=== PATIENT | female | born 1955 | race Caucasian/White ===

== ENCOUNTER 2025-02-20 16:43 | Emergency (ER) | payer MEDICARE, OTHER, SELFPAY ==
[2025-02-20] VITALS (9 sets, daily range): BP systolic 125–135; BP diastolic 56–77; PULSE 64–84; BMI 22.8
[2025-02-20 17:28] LABS: Hematocrit 39.7 % (37.0-47.0); Hemoglobin 13.4 g/dL (12.0-16.0); Mean Corp Hgb Conc. 33.8 g/dL (33.0-37.0); Mean Corpuscular Volume 99.0 fL (81.0-99.0); Nucleated Red Blood Cells % 0 %; Platelet Count 217 10^3/uL (130-400); Red Cell Dist. Width 12.5 % (11.5-14.5)
[2025-02-20] MEDS: NSS 1000 IV (17:46)
[2025-02-20] MEDS: ATIVAN 0.5 MG PO (17:47)
[2025-02-20 17:53] LABS: Troponin I < 0.012 ng/ml
[2025-02-20 17:54] LABS: ALT (SGPT) 21 U/L (0-35); AST (SGOT) 26 U/L (14-36); Albumin 4.7 g/dl (3.5-5.0); Alkaline Phosphatase 85 U/L (38-126); Blood Urea Nitrogen 16 mg/dl (7-17); Calcium 9.0 mg/dl (8.4-10.2); Carbon Dioxide 22 mmol/L (22-30); Chloride 103 mmol/L (98-107); Estimated Creatinine Clearance 63 ml/min; Glucose 113 mg/dl (70-99); Potassium 3.5 mmol/L (3.5-5.1); Sodium 134 mmol/L (135-145); Total Protein 7.4 g/dl (6.3-8.2); eGFR > 60.00
--- NOTE | 2025-02-20 18:10 | ED.GENMED ---
History of Present Illness
General
Chief Complaint: Fainting/Passed Out
Time Seen by Provider: 02/20/25 17:32
History of Present Illness
History of Present Illness:
69-year-old female with history of anxiety presenting to the emergency department for near syncopal episode. Patient reports prior to arrival she was driving to the grocery store and felt like she was about to blackout so she pulled over. She
called the ambulance. Notes that she did not eat very much today, she had half a slice of bread with a piece of cheese on it and some jellybeans. Notes that this has happened to her in the past. Reports some prodromal dizziness. Denies any chest
pain or difficulty breathing. Denies abdominal pain or GI symptoms. Does report that she is feeling anxious. Denies additional acute medical complaints
Phy Exam
Physical Exam
Physical Exam:
General: Well-appearing, no clinical signs of dehydration, nontoxic and in no acute distress
HEENT: protecting airway
Neck: appears supple
CV: Normal heart rate, regular rhythm
Resp: No accessory muscle use, no increased work of breathing, lungs clear to auscultation bilaterally
Abd: no distension
Extremities: No deformities, no swelling
Neuro: alert, no focal neurologic deficit
: deferred
Rectal: deferred
Psych: Normal affect
Skin: Intact
Course
Orders/Labs/Results
Orders:
Orders
02/20/25 16:47
Electrocardiogram (*1) Urgent
Reason for Study: Chest Pain
Cardiac Monitoring- Treatment ONCE
EKG- Treatment ONCE
IV Insert/Care/Rem.- Treatment PRN
O2 Therapy [RESP] Urgent
Titrate/Wean O2 to maintain O2 sat greater than (%): 90
Special Instructions: Maintain sats >/=90%
Pulse Ox/spot Check [RESP] Urgent
Quantity: 1
Special Instructions: ON ROOM AIR
02/20/25 17:13
Complete Blood Count/With Diff Urgent
Comprehensive Metabolic Panel Urgent
Troponin I Urgent
02/20/25 17:42
0.9% Sodium Chloride 1000 ml [Nss] 1,000 ml IV BOLUS
Lorazepam [Ativan] 0.5 mg PO NOW STA
02/20/25 18:17
Orthostatic VS- Treatment ONCE
Abnormal Lab Results
02/20/25
17:13
RBC 4.01 L 10^6/uL
(4.20-5.40)
MCH 33.4 H pg
(27.0-31.0)
MPV 10.5 H fL
(7.4-10.4)
Absolute Lymphs (auto) 3.5 H 10^3/uL
(1.2-3.4)
Neutrophils % 41.4 L %
(42.2-75.2)
Sodium 134 L mmol/L
(135-145)
Glucose 113 H mg/dl
(70-99)
02/20/25 17:13
02/20/25 17:13
Vital Signs
Initial and Last Documented VS:
Initial Vital Signs
Temp Pulse Resp BP Pulse Ox
98.5 F 80 16 125/56 98
02/20/25 16:50 02/20/25 16:50 02/20/25 16:50 02/20/25 16:50 02/20/25 16:50
Last Documented Vital Signs
Temp Pulse Resp BP Pulse Ox
98.2 F 89 28 135/77 98
02/20/25 18:00 02/20/25 18:30 02/20/25 18:30 02/20/25 18:28 02/20/25 18:30
MDM/Problems Addressed
MDM/Problems Addressed:
69-year-old female with history of anxiety presenting for near syncope. Vital signs on arrival are normal.
On exam, patient resting comfortably, no acute distress or discomfort. Patient notes that she is feeling anxious, otherwise no acute symptoms. Reports that this has happened to her in the past and she was told it was vasovagal. Do suspect similar
etiology today, likely from lack of p.o. intake or fluid intake. No present concerning signs on exam, no focal neurologic deficits, unremarkable cardiac and pulmonary exam. EKG obtained, nonischemic, no arrhythmia. Plan for screening laboratory
analysis, orthostatics, and will treat with IV fluids and reassess. Patient is requesting Ativan for anxiety. Will administer
19:30 - Patient's labs are unremarkable. Orthostatics are negative. On reassessment patient reports that she is asymptomatic and would like to go home. Feel this is reasonable, however did educate on importance of appropriate nutrition and
hydration. Patient is here with her son. Son will take her home. Return precautions discussed and patient verbalized understanding
*Pulse Oximetry
SaO2: 99
Oxygen Mode of Delivery: Room air
Patient hypoxic: no
*EKG
Interpreted by ED Provider?: Yes
EKG Intrepretation Date: 02/20/25
EKG Intrepretation Time: 18:18
Interpretation: normal
Heart Rate: 76
Rate: normal
Rhythm: sinus
[place]: normal axis
Interval: normal interval
QRS Pattern: normal QRS
Ischemia: no ischemia
*Critical Care Note
Total Time (30-74mins, 75-104mins- exclusive of procedures): Not Applicable
ED Attending Note
-
Portions of this chart may have been created with voice recognition software.� Occasional wrong word or��sound alike� substitutions may have occurred due to the inherent limitations of voice recognition software.
Discharge Plan
Departure
Prescriptions:
No Action
valacyclovir [Valtrex] 500 mg Tablet
500 mg PO PRN PRN (Reason: cold sore)
escitalopram oxalate [Lexapro] 5 mg Tablet
5 mg PO DAILY
Referrals:
Scott Herring MD [Family Provider, Internal Medicine]
Interventions
Interventions:
*Risk Screen - Suicide Last Done: 02/20/25 16:50
*General Assessment Last Done: 02/20/25 16:50
*Neglect/Abuse Screening Last Done: 02/20/25 16:50
*ED- Fall Risk Assessment Last Done: 02/20/25 16:50
ED- Cardiac Assessment Last Done: 02/20/25 16:50
ED- Neurological Assessment Last Done: 02/20/25 16:50
Discharge Date and Time
Print Language: [id number]
== END 2025-02-20 21:00 | disposition home or self-care (01) ==
LOC: EMR 16:43
PROVIDERS: EMERGENCY PHYSICIAN Student in an Organized Health Care Education/Training Program; FAMILY PHYSICIAN Internal Medicine
DX: R55 Syncope and collapse (principal); F41.9 Anxiety disorder, unspecified
CPT/HCPCS: 96360; 99284; 80053; 84484; 85025; 93005